=== PATIENT | male | born 1980 | race Caucasian/White ===

== ENCOUNTER 2016-12-15 19:06 | Emergency (ER) | payer SELFPAY ==
[~2016-12-15] VITALS: Ht 182.9 cm; Wt 72.7 kg
[~2016-12-15 19:06] MED LIST: ANTIBIOTIC; EXCEDRIN EXTRA1 EACH PO; EXCEDRIN1 TAB PO; ORPHENADRINE C100 MG PO; PENICILLIN-VK500 M1 PO; ULTRAM50 M1 PO; ULTRAM50 MG PO
[2016-12-15] MEDS ORDERED: PREDNISONE10 MG PO (22:38)
[2016-12-15 23:12] VITALS: BP 134/82
== END 2016-12-15 23:03 | disposition home or self-care (01) ==
LOC: ED 19:06
DX: S46.001A Unspecified injury of muscle(s) and tendon(s) of the rotator cuff of right shoulder, initial encounter (principal); S14.3XXA Injury of brachial plexus, initial encounter; Y04.2XXA Assault by strike against or bumped into by another person, initial encounter
CPT/HCPCS: J1100

== ENCOUNTER 2017-07-05 16:32 | Emergency (ER) | payer MEDICARE ==
[~2017-07-05] VITALS: Ht 175.3 cm; Wt 70.5 kg
[~2017-07-05 16:32] MED LIST changes: +PREDNISONE10 MG PO
[2017-07-05 17:37] VITALS: BP 120/89
== END 2017-07-05 17:37 | disposition home or self-care (01) ==
LOC: ED 16:32
DX: M79.602 Pain in left arm (principal); Z88.8 Allergy status to other drugs, medicaments and biological substances
CPT/HCPCS: A4565

== ENCOUNTER → 2017-09-20 | Outpatient (CLI) | payer SELFPAY ==
[~2017-09-20] VITALS: Ht 175.3 cm; Wt 72.7 kg
[2017-09-20 12:19] LABS: EOS % 0.4 % (0.0-4.0); HEMATOCRIT 45.2 % (42.0-52.0); HEMOGLOBIN 15.1 g/dL (13.5-18.0); LYMPH# 1.4 (1.50-4.00); MEAN CELL VOLUME 86 fl (78-100); MEAN CORPUSCULAR HEMOGLOBIN 29 pg (27-31); MEAN CORPUSCULAR HGB CONC 33 g/dL (33-37); MEAN PLATELET VOLUME 10.2 fl (7.4-10.4); MONO # 0.8 (0.20-0.80); NEU # 6.7 (1.40-6.50); PLATELET COUNT 238 K/mm3 (130-400); RED BLOOD COUNT 5.24 M/mm3 (4.20-5.60); RED CELL DISTRIBUTION WIDTH 13.4 % (11.5-14.5)
[2017-09-20 12:32] LABS: BUN/CREATININE RATIO 13.9 (6.0-26.0); CALCIUM 9.2 mg/dL (8.4-10.2); POTASSIUM 4.1 mmol/L (3.6-5.0); TOTAL BILIRUBIN 0.4 mg/dL (0.2-1.3); TOTAL PROTEIN 7.7 g/dL (6.3-8.2)
[2017-09-20 12:35] VITALS: BP 111/72
== END ==
LOC: AMSURD 12:03
PROVIDERS: Nurse Practitioner Family
DX: R07.9 Chest pain, unspecified (principal)

== ENCOUNTER 2017-12-26 15:34 | Emergency (ER) | payer SELFPAY ==
[~2017-12-26] VITALS: Ht 182.9 cm; Wt 72.7 kg
[2017-12-26 16:09] LABS: EOS # 0.1 (0.04-0.40); EOS % 0.7 % (0.0-4.0); HEMATOCRIT 44.1 % (42.0-52.0); HEMOGLOBIN 14.9 g/dL (13.5-18.0); LYMPH# 1.2 (1.50-4.00); MEAN CELL VOLUME 87 fl (78-100); MEAN CORPUSCULAR HEMOGLOBIN 29 pg (27-31); MEAN CORPUSCULAR HGB CONC 34 g/dL (33-37); MEAN PLATELET VOLUME 10.5 fl (7.4-10.4); MONO # 0.7 (0.20-0.80); NEU # 6.8 (1.40-6.50); PLATELET COUNT 183 K/mm3 (130-400); RED BLOOD COUNT 5.09 M/mm3 (4.20-5.60); RED CELL DISTRIBUTION WIDTH 13.7 % (11.5-14.5); WHITE BLOOD COUNT 8.8 K/mm3 (4.8-10.8)
[2017-12-26 16:24] LABS: PROTHROMBIN TIME 9.8 SECONDS (9.0-12.0)
[2017-12-26 16:28] LABS: CKMB ISOENZYME 3.2 ng/mL (0.6-3.5); TROPONIN-I < 0.03 ng/mL (0.00-0.06)
[2017-12-26 16:57] LABS: URINE APPEARANCE CLEAR; URINE BILIRUBIN NEGATIVE (NEGATIVE); URINE BLOOD NEGATIVE (NEGATIVE); URINE COLOR YELLOW; URINE GLUCOSE NEGATIVE (NEGATIVE); URINE KETONE NEGATIVE (NEGATIVE); URINE LEUKOCYTE ESTERASE NEGATIVE (NEGATIVE); URINE NITRATE NEGATIVE (NEGATIVE); URINE PROTEIN(semi-quant) NEGATIVE (NEGATIVE); URINE UROBILINOGEN NORMAL (NORMAL); URINE WBC 0-1 /hpf (0-3)
[2017-12-26 17:13] LABS: BUN/CREATININE RATIO 10.9 (6.0-26.0); POTASSIUM 3.7 mmol/L (3.6-5.0)
[2017-12-26 17:14] LABS: CALCIUM 9.4 mg/dL (8.4-10.2); TOTAL BILIRUBIN 0.9 mg/dL (0.2-1.3); TOTAL PROTEIN 7.3 g/dL (6.3-8.2)
[2017-12-26 17:49] VITALS: BP 113/84
== END 2017-12-26 18:10 | disposition home or self-care (01) ==
LOC: ED 15:34
PROVIDERS: Nurse Practitioner Primary Care
DX: R07.89 Other chest pain (principal); R07.1 Chest pain on breathing; F15.90 Other stimulant use, unspecified, uncomplicated

== ENCOUNTER 2018-02-14 17:01 | Emergency (ER) | payer SELFPAY ==
[2018-02-14] MEDS ORDERED: MEDROL DOSEPAK4 MG PO (18:05)
[2018-02-14] MEDS ORDERED: CYCLOBENZAPRINE10 M1 PO (18:10)
[2018-02-14 18:36] VITALS: BP 121/88
== END 2018-02-14 18:36 | disposition home or self-care (01) ==
LOC: ED 17:01
DX: G89.29 Other chronic pain (principal); M54.5 Low back pain; M54.16 Radiculopathy, lumbar region; Z91.19 Patient's noncompliance with other medical treatment and regimen; Z88.8 Allergy status to other drugs, medicaments and biological substances
CPT/HCPCS: J1100

== ENCOUNTER 2018-05-15 09:50 | Emergency (ER) | payer SELFPAY ==
[~2018-05-15] VITALS: Ht 182.9 cm; Wt 84.1 kg
[~2018-05-15 09:50] MED LIST changes: +CYCLOBENZAPRINE10 M1 PO; +MEDROL DOSEPAK4 MG PO
[2018-05-15] MEDS ORDERED: NORCO 10-325 T1 EACH PO (11:09)
[2018-05-15] MEDS ORDERED: MEDROL DOSEPAK4 MG PO (11:09)
[2018-05-15 11:18] VITALS: BP 133/85
== END 2018-05-15 11:21 | disposition home or self-care (01) ==
LOC: ED 09:50
DX: M54.5 Low back pain (principal); G89.29 Other chronic pain; Z87.891 Personal history of nicotine dependence; Z88.8 Allergy status to other drugs, medicaments and biological substances
CPT/HCPCS: J2360